=== PATIENT | female | born 1975 | race Caucasian/White ===

== ENCOUNTER 2021-01-26 01:27 | Inpatient (IN) ==
[2021-01-26] MEDS ORDERED: ONDANSETRON INJ 2 MG/ML 2 ML VIAL IV PRN (06:59)
[2021-01-26 07:28] LABS: Basophils # (auto) 0.05 K/uL (0-0.2); Basophils % (auto) 0.4 %; Eosinophils # (auto) 0.08 K/uL (0-0.5); Eosinophils % (auto) 0.6 %; Hematocrit (blood only) 26.3 % (37-47); Hemoglobin 8.8 g/dL (12.0-16.0); Immature Granulocytes # (auto) 0.04 K/uL (0.00-0.02); Immature Granulocytes % (auto) 0.3 %; Lymphocytes # (auto) 2.27 K/uL (1.2-3.4); Lymphocytes % (auto) 16.4 %; Mean Corpuscular Hemoglobin 33.3 pg (25-34); Mean Corpuscular Hgb Conc 33.5 g/dL (32-36); Mean Corpuscular Volume 99.6 fL (80-100); Mean Platelet Volume 9.6 fL (7.4-10.4); Monocytes # (auto) 1.42 K/uL (0.11-0.59); Monocytes % (auto) 10.3 %; Neutrophils # (auto) 9.96 K/uL (1.4-6.5); Platelet Count 151 K/uL (130-400); RDW Coefficient of Variation 19.6 % (11.5-14.5); RDW Standard Deviation 71.1 fL (36.4-46.3); Red Blood Count 2.64 M/uL (4.2-5.4); White Blood Count 13.82 K/uL (4.8-10.8)
[2021-01-26 07:30] LABS: Base Excess VBG 3.6 mEq/L; Oxygen Saturation VBG 83.3 %; pH VBG 7.45 (7.36-7.41)
[2021-01-26] MEDS ORDERED: PATIENT'S ALLERGY INFO NEEDS ENTERED SCH (07:30)
[2021-01-26 07:46] LABS: Albumin Level 2.5 gm/dl (3.4-5.0); BUN Creatinine Ratio 29.1 (10-20); Creatinine Clr Calc Pharmacy 162.4 ml/min; Est GFR (African American) 132.6 ml/min; Est GFR (Non-African American) 114.5 ml/min; Potassium 3.7 mmol/L (3.5-5.1)
[2021-01-26 07:50] LABS: INR 1.7 (0.9-1.1); Partial Thromboplastin Ratio 1.1; Partial Thromboplastin Time 30.2 Seconds (21.0-31.0); Prothrombin Time 16.7 Seconds (9.0-12.0)
[2021-01-26 07:55] LABS: Albumin Globulin Ratio 0.6 (0.9-2); Bilirubin,Total 10.1 mg/dl (0.2-1); Total Protein 6.5 gm/dl (6.4-8.2)
[2021-01-26] MEDS ORDERED: rOPINIRole HCL 0.25 MG TABLET PO PRN (08:07)
[2021-01-26] MEDS ORDERED: HYDROmorphone INJ 0.5 MG/0.5 ML SYR IV STA (08:38)
[2021-01-26] MEDS ORDERED: LIDOCAINE 2% LOCAL 50 ML VIAL ONE (08:42)
[2021-01-26] MEDS ORDERED: LIDOCAINE 1% LOCAL 20 ML VIAL ONE (08:43)
[2021-01-26] MEDS ORDERED: HYDROmorphone INJ 0.5 MG/0.5 ML SYR ONE (08:44)
[2021-01-26] MEDS ORDERED: LIDOCAINE/EPINEPHRINE 1% 20 ML VIAL INFIL ONE (08:47)
[2021-01-26] MEDS: LACTULOSE SYRUP 30 GM/45 ML UDP PO SCH ×4 (10:04→20:26)
[2021-01-26] MEDS: SPIRONOLACTONE 25 MG TAB PO SCH ×2 (10:04→17:13)
[2021-01-26] MEDS: THIAMINE HCL 100 MG TAB PO SCH (10:04)
[2021-01-26] MEDS: NICOTINE 14 MG/24 HR PATCH TD SCH (10:05)
[2021-01-26] MEDS: PANTOprazole 40 MG TAB PO SCH (10:05)
[2021-01-26] MEDS: PREGABALIN 100 MG CAP PO SCH ×2 (10:09→20:22)
--- NOTE | 2021-01-26 10:40 | Gastrointestinal Consultation ---
Date of Consultation January 26, 2021 Assessment & Plan (1) Alcoholic hepatitis: (2) Alcoholic cirrhosis: cirrhosis with what appears to be alcoholic hepatitis vs. encephalopathy from SBP, her DF is 38.6. paracentesis was done, fluid studies are pending. US pending. Recs: --await results of paracentesis, if no SBP then would recommend starting steroids IV methylprenisolone 32 mg daily, calculate Lille score on day 7 of steroids to see if effective --continue PPI daily, trend H/H --will need EGD for variceal screening, likely as an outpatient, sooner if bleeds or rapid drop in H/H during hospitalization --supportive care --start lactulose 30 mL BID, titrate to 3-4 soft/loose bms daily --start rifaximin 550 mg BID --start zinc sulfate daily Thank you for allowing me to participate in the care of this patient History of Present Illness Attending Physician: Ian Garcia MD 46 yo female with hx alcoholic cirrhosis who presented with confusion after drinking alcohol. She notes she drank vodka and has been feeling confused. Was told she was supposed to quit drinking when she was diagnosed with cirrhosis about a year ago but has been drinking still but less, roughly once a week she says, mostly vodka. She also notes swelling in her abdomen with fluid, denies any blood per rectum or hematemesis. She does not know the name of her GI that she sees as an outpatient. labs reviewed, hgb 8.8 is noted with normal BUN. VSS. Allergies Allergy/AdvReac Type Severity Reaction Status Date / Time No Known Allergies Allergy Verified 01/26/21 07:46 Home Medications Medication Instructions Recorded Confirmed Type cholecalciferol (vitamin D3) 2,000 mcg PO DAILY 01/26/21 01/26/21 History [Vitamin D3] cyanocobalamin (vitamin B-12) 1,000 mcg PO DAILY 01/26/21 01/26/21 History lactulose PO 01/26/21 History magnesium oxide 400 mg PO BID 01/26/21 01/26/21 History omeprazole 20 mg PO DAILY 01/26/21 01/26/21 History pantoprazole 40 mg PO DAILYBB 01/26/21 01/26/21 History pregabalin 100 mg PO BID 01/26/21 01/26/21 History ropinirole [Requip] 0.75 mg PO HS PRN 01/26/21 01/26/21 History spironolactone [Aldactone] 50 mg PO BID 01/26/21 01/26/21 History thiamine HCl (vitamin B1) 100 mg PO DAILY 01/26/21 01/26/21 History zolpidem [Ambien] 10 mg PO HS PRN 01/26/21 01/26/21 History Patient History Social History Smoking Status: Current every day smoker Cigarettes Per Day: 1 PPD; Second Hand Exposure: Yes; Do You Dip or Chew Tobacco: No; Tobacco Cessation Education Requested by Patient: No Hx Alcohol Use: Yes Alcohol type: hard liquor Hx Substance Use: Yes Last Used Substance: Unknown Preferred Language: Croatian Communication Ability: Effective Beliefs That Will Affect Care: None Current Living Situation: Alone Other Information That Helps Us Care for You: No Feels Safe at Home: Yes Safety Concerns: Feels Safe At This Time Assistive Devices: Walker Review of Systems Constitutional: no fever, no chills and no weight loss Eyes: as per Subjective / HPI Ear, Nose, Mouth, Throat: as per Subjective / HPI Respiratory: no dyspnea and no dyspnea on exertion Cardiovascular: no chest pain and no palpitations Gastrointestinal: as per Subjective / HPI Musculoskeletal: no joint pain and no swelling Integumentary: no rash and no lesions Neurologic: no numbness and no paresthesia Psychiatric: no depression and no anxiety Endocrine: no fatigue Hematologic / Lymphatic: no easy bleeding and no easy bruising Physical Exam Constitutional: WD/WN, vitals as above Eyes: EOM intact bilaterally Neck: normal visual inspection Respiratory: normal respiratory effort, lungs clear to auscultation Cardiovascular: RRR, no murmur, no edema Gastrointestinal (Abdomen): Inspection/Auscultation: + abdomen distended and normal bowel sounds Percussion/Palpation: + abdomen tender (diffuse mild); + abdomen not soft and no hepatosplenomegaly no asterixis Musculoskeletal: Extremities: no cyanosis Gait: normal gait Skin: no rashes, warm and dry Neurologic: moves all extremities Psychiatric: Orientation: alert, oriented to person, oriented to place and cooperative; + not oriented to time Affect: euthymic affect Results & Data ([facility]) Vital Signs (Past 12 Hours) Vital Signs Temp Pulse Resp BP Pulse Ox 01/26/21 06:05 36.4 C L 88 22 128/48 L 96 PG Care Time/CCT Total # of Minutes Spent Total Time Spent with Patient: Total time spent is greater than 50% in coordination of care (as documented) at patient's floor/unit and/or counseling patient: Coding Level of Care Code 93972 Inpt Consult Level 4 Diagnoses Alcoholic hepatitis K70.10 Alcoholic cirrhosis K70.30
[2021-01-26 10:43] LABS: Appearance Peritoneal Fluid CLEAR; Basophils, Fluid 0 %; Color Peritoneal Fluid YELLOW; Eosinophils, Fluid 0 %; Lymphocytes, Fluid 66 %; Mono,Macrophage,Mesothelial 27 %; Neutrophils, Fluid 7 %; RBC Peritoneal Fluid (A) < 3000 /uL; WBC Peritoneal Fluid (A) 200 /ul (0-300)
[2021-01-26 10:50] LABS: Albumin Peritoneal Fluid 0.6 g/dl; LDH Peritoneal Fluid 52 U/L
[2021-01-26] MEDS: traMADol HCL 50 MG TABLET PO PRN ×2 (13:26→21:49)
[2021-01-26] MEDS: LIDOCAINE 5% 1 PATCH TD SCH (13:27)
[2021-01-26] MEDS: methylPREDNISolone 40 MG in SYRINGE 0 ML IV SCH (13:27)
--- NOTE | 2021-01-26 14:44 | Psychiatric Consultation ---
Date of Consultation January 26, 2021 Impression / Recommendations Impression 46-year-old female presenting as a interhospital transfer secondary to AMS. Patient found to be cirrhotic upon diagnostic evaluation. Patient was reported to have made a suicidal statement while in the midst of her delirium and was on suicide precautions. Patient now denying any suicidal ideation or need for acute psychiatric care. Recommendations: Patient is not suicidal discontinue one-to-one sitter Psychiatric liaison to follow and offer outpatient resources Inventory Assets Strengths: Insight Needs: Sobriety Risk Factors Assessment Male: No : Yes Hopelessness: No Psych History Chief Complaint "I am still nauseous, maybe more so than this morning" History of Present Illness Patient is a 46-year-old female who was transferred from outside hospital due to altered mental status. According to records from outside hospital patient did make a suicidal statement while under the care and was placed on suicide precautions. Upon evaluation today, patient is laying calm and cooperative in bed. She reports her sensorium is somewhat cloudy but is able to make conversation in a logical fashion. She does not recall making suicidal statements and denies any suicidal ideation at this time. Patient does have a mental health history of depression anxiety for which she is not currently in treatment for. Patient denies the need for any acute treatment at this time, but is agreeable and accepting of outpatient psychiatric resources. Patient denying any manic or psychotic symptoms in the past or presently. Allergies Allergy/AdvReac Type Severity Reaction Status Date / Time No Known Allergies Allergy Verified 01/26/21 07:46 Home Medications Medication Instructions Recorded Confirmed Type cholecalciferol (vitamin D3) 2,000 mcg PO DAILY 01/26/21 01/26/21 History [Vitamin D3] cyanocobalamin (vitamin B-12) 1,000 mcg PO DAILY 01/26/21 01/26/21 History lactulose PO 01/26/21 History magnesium oxide 400 mg PO BID 01/26/21 01/26/21 History omeprazole 20 mg PO DAILY 01/26/21 01/26/21 History pantoprazole 40 mg PO DAILYBB 01/26/21 01/26/21 History pregabalin 100 mg PO BID 01/26/21 01/26/21 History ropinirole [Requip] 0.75 mg PO HS PRN 01/26/21 01/26/21 History spironolactone [Aldactone] 50 mg PO BID 01/26/21 01/26/21 History thiamine HCl (vitamin B1) 100 mg PO DAILY 01/26/21 01/26/21 History zolpidem [Ambien] 10 mg PO HS PRN 01/26/21 01/26/21 History Personal History Beliefs That Will Affect Care: None Patient History Social History Smoking Status: Current every day smoker Cigarettes Per Day: 1 PPD; Second Hand Exposure: Yes; Do You Dip or Chew Tobacco: No; Tobacco Cessation Education Requested by Patient: No Hx Alcohol Use: Yes Alcohol type: hard liquor Hx Substance Use: Yes Last Used Substance: Unknown Preferred Language: Mohawk Communication Ability: Effective Beliefs That Will Affect Care: None Current Living Situation: Alone Other Information That Helps Us Care for You: No Feels Safe at Home: Yes Safety Concerns: Feels Safe At This Time Assistive Devices: Walker Physical Exam Psychiatric: Orientation: alert Apperance: appropriately groomed Eye Contact: + fair eye contact Motor Behavior: no abnormal motor movements S peech: normal rate/rhythm/volume of speech Affect: + flat affect Mood: no depressed mood and no anxious mood Thought Process: goal directed thought process Thought Content: reality based without delusions Suicidal Thoughts: denies suicidal thoughts Homicidal Thoughts: denies homicidal thoughts Hallucinations: no auditory hallucinations and no gustatory hallucinations Cognition: recent memory grossly intact Estimated Intelligence: average estimated intelligence Insight: + fair insight Judgement: + fair judgement Vital Signs (Past 24 Hours): Last Vital Signs Temp 37.0 C 01/26/21 11:58 Pulse 93 H 01/26/21 11:58 Resp 18 01/26/21 11:58 BP 118/63 01/26/21 11:58 Pulse Ox 91 01/26/21 11:58 Review of Systems All systems reviewed & are unremarkable except as noted in HPI & below Results & Data ([facility]) Medications Administered Methylprednisolone 40 mg/ (Syringe) 0.64 mls @ 1.5 mls/min IV DAILY KORY Stop: 02/25/21 12:29 Last Admin: 01/26/21 13:27 Dose: 1.5 mls/min Documented by: [id number] Lactulose (Lactulose Syrup 30 Gm/45 Ml Udp) 30 gm PO TID KORY Stop: 02/25/21 08:59 Last Admin: 01/26/21 13:27 Dose: 30 gm Documented by: [id number] Admin: 01/26/21 10:04 Dose: 30 gm Documented by: [id number] Lidocaine (Lidocaine 5% 1 Patch) 1 [facility] [place]: 02/25/21 12:29 Last Admin: 01/26/21 13:27 Dose: 1 patch Documented by: [id number] Nicotine (Nicotine 14 Mg/24 Hr Patch) 14 mg TD QAM [facility] Stop: 02/25/21 08:59 Last Admin: 01/26/21 10:05 Dose: 14 mg Documented by: [id number] Pantoprazole Sodium (Pantoprazole 40 Mg Tab) 40 mg PO DAILYBB [facility] Stop: 02/26/21 06:29 Last Admin: 01/26/21 10:05 Dose: 40 mg Documented by: [id number] Pregabalin (Pregabalin 100 Mg Cap) 100 mg PO BID [facility] Stop: 02/25/21 08:59 Last Admin: 01/26/21 10:09 Dose: 100 mg Documented by: [id number] Spironolactone (Spironolactone 25 Mg Tab) 50 mg PO BID17 [facility] Stop: 02/25/21 08:59 Last Admin: 01/26/21 10:04 Dose: 50 mg Documented by: [id number] Thiamine HCl (Thiamine Hcl 100 Mg Tab) 100 mg PO DAILY [facility] Stop: 02/25/21 08:59 Last Admin: 01/26/21 10:04 Dose: 100 mg Documented by: [id number] Tramadol HCl (Tramadol Hcl 50 Mg Tablet) 50 mg PO TID PRN PRN Reason: Severe Pain Stop: 02/25/21 13:59 Last Admin: 01/26/21 13:26 Dose: 50 mg Documented by: [id number] Coding Level of Care Code 79013 U Intl Hosp Care Lvl 2
--- NOTE | 2021-01-26 15:16 | History & Physical Report ---
Date of Service January 26, 2021 Assessment & Plan (1) Alcoholic hepatitis: Janette DF is 38 on admission. - SBP ruled out with clean paracentesis; started methylprednisolone 40 mg IV daily per GI - RUQ u/s pending - HCV testing ordered for AM - Monitor for withdrawal -> None on exam today. - Follow liver labs - GI consulted (2) Alcoholic cirrhosis: Evidence of cirrhosis on imaging and exam. MELD score gives 19.6% chance of mortality in 3 months. - RUQ u/s as above - Continue home lactulose -> NH3 of 42 on outside labs - Continue spironolactone - Continue PPI PO daily - Monitor for bleeding -> Hgb was 8.8 on admission which was similar to her hgb at [facility] yesterday. Presently no indication of acute GI bleed. (3) Depression: Expressed SI to the [facility] ED attending and to admitting provider at [facility], but denied it to psychciatry. - Cleared from suicide precautions. - Will get outpatient resources from psychiatric nurse liaison (4) Alcohol abuse: Has drank up to 1 bottle of vodka daily, though she endorses cutting back in the last weeks/months. - Monitor for withdrawal (5) Chronic back pain: Chronic back pain. - Tylenol PRN (<2g/day) - Lidocaine patches - Tramadol (hepatically-adjusted) (6) Tobacco abuse: Smokes 1/2 ppd. - Nicotine patch ordered (7) DVT prophylaxis: SCDs - No heparin until hgb stable. Admission and Anticipated Discharge Date Admission Date: January 26, 2021 History of Present Illness Primary Care Provider: Emeterio Herndon 46yo F w/ hx of alcoholic cirrhosis. She usually follows with [facility], but cannot tell me any specifics of her recent liver care. She tells me she went to [facility] ED for back and abdominal pain as well as suicidal feelings. She denies she had a plan, but says that if God intends for her to be in such pain, she needs a "back-up plan." She notes that she has chronic nausea and sporadic emesis. She reports her last emesis to be on . She reports the emesis as her prior ingested food and sometimes some bilious vomit, but denies coffee ground emesis or any hematemes is. She note some mild bright red blood on her stool, but mostly it is on the toilet paper when she wipes. She notes that when she drank more heavily, she would drink an entire bottle of vodka per day or "until [she] passed out." Presently, she reports her last drink as on and that it was only 1 1/2 shots of vodka. She endorses significant back and abdominal pain, but otherwise none. She denies any chest pain, shortness of breath, present nausea or vomiting, denies fevers/chills. She is somewhat confused and keeps thinking she is at [facility] where she is usually sent for hospitalization. Allergies Allergy/AdvReac Type Severity Reaction Status Date / Time No Known Allergies Allergy Verified 01/26/21 07:46 Home Medications Medication Instructions Recorded Confirmed Type cholecalciferol (vitamin D3) 2,000 mcg PO DAILY 01/26/21 01/26/21 History [Vitamin D3] cyanocobalamin (vitamin B-12) 1,000 mcg PO DAILY 01/26/21 01/26/21 History lactulose PO 01/26/21 History magnesium oxide 400 mg PO BID 01/26/21 01/26/21 History omeprazole 20 mg PO DAILY 01/26/21 01/26/21 History pantoprazole 40 mg PO DAILYBB 01/26/21 01/26/21 History pregabalin 100 mg PO BID 01/26/21 01/26/21 History ropinirole [Requip] 0.75 mg PO HS PRN 01/26/21 01/26/21 History spironolactone [Aldactone] 50 mg PO BID 01/26/21 01/26/21 History thiamine HCl (vitamin B1) 100 mg PO DAILY 01/26/21 01/26/21 History zolpidem [Ambien] 10 mg PO HS PRN 01/26/21 01/26/21 History Past Med/Surg History Medical History Alcoholic cirrhosis Depression Surgical History No significant past surgical history Family History Other No significant family history Social History Smoking Status: Current every day smoker Cigarettes Per Day: 1 PPD; Second Hand Exposure: Yes; Do You Dip or Chew Tobacco: No; Tobacco Cessation Education Requested by Patient: No Hx Alcohol Use: Yes Alcohol type: hard liquor Hx Substance Use: Yes Last Used Substance: Unknown Preferred Language: Jamaican Communication Ability: Effective Beliefs That Will Affect Care: None Current Living Situation: Alone Other Information That Helps Us Care for You: No Feels Safe at Home: Yes Safety Concerns: Feels Safe At This Time Assistive Devices: Walker Review of Systems Review of Systems: All systems reviewed & are unremarkable except as noted in HPI & below Physical Exam Constitutional: WD/WN, vitals as above + acute distress Eyes: EOM intact bilaterally; no conjunctival abnormality and sclerae not anicteric ENMT: external ear and nose normal, oropharynx normal Neck: trachea midline, no thyromegaly normal visual inspection Respiratory: normal respiratory effort, lungs clear to auscultation no respiratory distress Cardiovascular: RRR, no murmur, no edema Gastrointestinal (Abdomen): Inspection/Auscultation: + abdomen distended; + abdomen abnormal to inspection (Spider veins) Percussion/Palpation: abdomen soft and + ascites; abdomen nontender, no guarding and abdomen not rigid Musculoskeletal: no cyanosis or clubbing, extremities motor strength 5/5 Skin: no rashes, warm and dry + jaundice Neurologic: moves all extremities and awake Motor/Sensory: no tremor, no fasciculations (No tongue fasiculations) and no asterixis Psychiatric: Orientation: alert, oriented to person and cooperative Results & Data Results & Data ([facility]) Vital Signs (Past 12 Hours) Vital Signs Temp Pulse Resp BP Pulse Ox 01/26/21 11:58 37.0 C 93 H 18 118/63 91 01/26/21 06:05 36.4 C L 88 22 128/48 L 96 Code Status & VTE Plan VTE Prophylaxis Plan VTE Prophylaxis will be ordered: Yes PG Care Time/CCT Total # of Minutes Spent Total Time Spent with Patient: Total time spent is greater than 50% in co ordination of care (as documented) at patient's floor/unit and/or counseling patient: Coding Level of Care Code 32597 Initial Inpt Care Lvl 3 Diagnoses Alcoholic hepatitis K70.10 Alcoholic cirrhosis K70.30 Depression F32.9 Alcohol abuse F10.10 Chronic back pain M54.9; G89.29 Tobacco abuse Z72.0 DVT prophylaxis Z29.9
--- NOTE | 2021-01-26 17:10 | Ultrasound Report ---
ABDOMINAL ULTRASOUND, RIGHT UPPER QUADRANT HISTORY: Liver, ascites. COMPARISON: None. FINDINGS: Pancreas: Is not well seen due to overlying bowel gas. Liver: Is enlarged measuring 22.4 cm in length. Prominent lobulated contour of the liver is seen and associated with ascites representing liver cirrhosis. No definite focal liver lesions or intrahepatic biliary dilatation is visualized however there is heterogeneous echogenicity and coarse echotexture of liver parenchyma. No evidence of flow within portal vein is seen. Recanalized umbilical vein is patent. Gallbladder: Surgically absent. CBD: 0.3 cm. Right kidney: Is measuring 11 cm in length and shows no evidence of hydronephrosis. Free fluid collection is seen within all 4 quadrants. IMPRESSION: Liver cirrhosis, hepatomegaly. Ascites. No flow within portal vein is seen. Patent umbilical vein. ACT 112: Negative or not required by law. The above report was generated using voice recognition software. It may contain grammatical, syntax o r spelling errors. Electronically signed by: Lucero Currie DO 01/26/2021 5:09 PM
[2021-01-26] MEDS: ACETAMINOPHEN 500 MG TAB PO PRN (17:13)
[2021-01-26] MEDS: rifAXIMin 550 MG TABLET PO SCH (20:19)
[2021-01-27] MEDS: ACETAMINOPHEN 500 MG TAB PO PRN (01:27)
[2021-01-27] MEDS: PANTOprazole 40 MG TAB PO SCH (06:06)
[2021-01-27] MEDS: traMADol HCL 50 MG TABLET PO PRN ×2 (06:07→17:55)
[2021-01-27 06:55] LABS: Hematocrit (blood only) 24.6 % (37-47); Hemoglobin 8.1 g/dL (12.0-16.0); Mean Corpuscular Hemoglobin 33.6 pg (25-34); Mean Corpuscular Hgb Conc 32.9 g/dL (32-36); Mean Corpuscular Volume 102.1 fL (80-100); Mean Platelet Volume 9.3 fL (7.4-10.4); Platelet Count 167 K/uL (130-400); RDW Coefficient of Variation 19.4 % (11.5-14.5); Red Blood Count 2.41 M/uL (4.2-5.4); White Blood Count 12.35 K/uL (4.8-10.8)
--- NOTE | 2021-01-27 07:14 | Procedure Note ---
Procedure Note Date of Service January 26, 2021 Supervising Physician Co-Signing Physician Notes I personally performed this paracentesis with the assistance of Silas Genao DO. The patient was consented with Dr. Genao and informed consent was put in the chart. A time-out was performed prior to the procedure with the patient identifying her name and birthdate. The site was confirmed with ultrasound. The site was marked and prepped with chlorhexidine and allowed to dry. Sterile gloves were donned and the area was draped with a sterile drape. 1 mL lidocaine with epi was injected under the skin and allowed to take effect. The site was numbed with the remaining 2 mL of lidocaine. A 20g needle was advanced and entered the peritoneal space. Return of yellow ascites fluid was seen. 20 mL of ascites fluid was sampled and the needle was pulled from the peritoneal cavity and examined and found to be intact. The site was cleaned and no bleeding was observed. There were no procedural complications. The patient tolerated the procedure well and was in no pain at the end of the procedure. A bandage was placed over the site, and the procedure was concluded. Coding CPT Codes Abdomen - Abdominal: 29300 Abdominal Paracentesis (diagnostic or therapeutic); W/O imaging ([id number]) [facility] Procedure Codes (Charges) Abdomen Abdominal: 22799 Abdominal Paracentesis (diagnostic or therapeutic); W/O imaging
[2021-01-27 07:17] LABS: Albumin Globulin Ratio 0.6 (0.9-2); Albumin Level 2.4 gm/dl (3.4-5.0); BUN Creatinine Ratio 43.9 (10-20); Calcium 8.3 mg/dl (8.5-10.1); Creatinine Clr Calc Pharmacy 180.4 ml/min; Est GFR (African American) 137.3 ml/min; Est GFR (Non-African American) 118.5 ml/min; Globulin 4.1 gm/dl (2.5-4.0); INR 1.8 (0.9-1.1); Magnesium 1.8 mg/dl (1.8-2.4); Partial Thromboplastin Ratio 1.1; Partial Thromboplastin Time 29.6 Seconds (21.0-31.0); Potassium 3.8 mmol/L (3.5-5.1); Prothrombin Time 17.1 Seconds (9.0-12.0); Total Protein 6.5 gm/dl (6.4-8.2)
[2021-01-27] MEDS: PREGABALIN 100 MG CAP PO SCH ×2 (09:23→20:38)
[2021-01-27] MEDS: LACTULOSE SYRUP 30 GM/45 ML UDP PO SCH ×3 (09:23→20:35)
[2021-01-27] MEDS: THIAMINE HCL 100 MG TAB PO SCH (09:24)
[2021-01-27] MEDS: ZINC SULFATE 220 MG CAPSULE PO SCH (09:24)
[2021-01-27] MEDS: rifAXIMin 550 MG TABLET PO SCH ×2 (09:26→20:35)
[2021-01-27] MEDS: methylPREDNISolone 40 MG in SYRINGE 0 ML IV SCH (09:26)
[2021-01-27] MEDS: SPIRONOLACTONE 25 MG TAB PO SCH ×2 (09:26→17:56)
[2021-01-27] MEDS: LIDOCAINE 5% 1 PATCH TD SCH (09:26)
[2021-01-27] MEDS: NICOTINE 14 MG/24 HR PATCH TD SCH (09:27)
[2021-01-27] MEDS: VENLAFAXINE HCL XR 37.5 MG CAPXR PO SCH ×2 (11:32→12:17)
--- NOTE | 2021-01-27 12:15 | Hospitalist Progress Note ---
Date of Service January 27, 2021 Assessment & Plan (1) Alcoholic hepatitis: Janette DF was 38 on admission. - SBP ruled out with clean paracentesis; started methylprednisolone 40 mg IV daily per GI. (Only did diagnostic paracentesis as patient was not willing to do therapeutic.) - HCV testing ordered for AM - pending - Monitor for withdrawal -> None on exam today. - Follow liver labs -> Improving - GI consulted - Appreciate recs (2) Alcoholic cirrhosis: Evidence of cirrhosis on imaging and exam. MELD score gives 19.6% chance of mortality in 3 months. RUQ u/s on 01/26 showed evidence of cirrhosis, possible portal vein thrombosis, and ascites. - Continue home lactulose -> NH3 of 42 on outside labs. Mental status improved today. - Continue spironolactone - Continue PPI PO daily - Monitor for bleeding -> Hgb was 8.8 on admission which was similar to her hgb at [facility] on 01/25. Unclear baseline. - Hgb down to 8.1 today. Presently no indication of acute GI bleed. If continues to drop, will likely need GI intervention. - Will get portal vein Doppler to confirm PVT. Given concern for bleeding, anticoagulation is contraindicated at present time. Also, presently not sure of chronicity in any event. (3) Depression: Expressed SI to the [facility] ED attending and to admitting provider at [facility], but denied it to psychiatry. - Cleared from suicide precautions. - Will get outpatient resources from psychiatric nurse liaison - Started venlafaxine ER 37.5 mg daily and Vistaril on 01/27. She reported success with duloxetine in the past, but stopped it when she relapsed with alcohol. Duloxetine is contraindicated in cirrhosis, but venlafaxine is ok at 1/2 usual dosing. Vistaril may help with anxiety as well. Also ordered with hepatic dosing. (4) Alcohol abuse: Has drank up to 1 bottle of vodka daily, though she endorses cutting back in the last weeks/months. - Monitor for withdrawal -> None noted so far. (5) Chronic back pain: Chronic back pain. - Tylenol PRN (<2g/day) - Lidocaine patches - Tramadol PRN (hepatically-adjusted) (6) Tobacco abuse: Smokes 1/2 ppd. - Nicotine patch ordered (7) DVT prophylaxis: SCDs - No heparin until hgb stable. Admission and Anticipated Discharge Date Admission Date: January 26, 2021 Subjective Feeling more anxious today. Still reports abdominal pain and back pain which are both chronic for her. Reports no fevers/chills, chest pain, shortness of breath, nausea, or vomiting. Physical Exam 2 Constitutional: WD/WN, vitals as above Eyes: EOM intact bilaterally; no conjunctival abnormality and sclerae not anicteric ENMT: external ear and nose normal, oropharynx normal Neck: trachea midline, no thyromegaly normal visual inspection Respiratory: normal respiratory effort, lungs clear to auscultation no respiratory distress Cardiovascular: RRR, no murmur, no edema Gastrointestinal (Abdomen): Inspection/Auscultation: + abdomen distended; + abdomen abnormal to inspection (Spider veins) Percussion/Palpation: abdomen soft and + ascites; abdomen nontender, no guarding and abdomen not rigid Musculoskeletal: no cyanosis or clubbing, extremities motor strength 5/5 Skin: no rashes, warm and dry + jaundice Neurologic: moves all extremities and awake Motor/Sensory: no tremor, no fasciculations (No tongue fasiculations) and no asterixis Psychiatric: Orientation: alert, oriented to person and cooperative Results & Data Results & Data ([facility]) Vital Signs (Past 12 Hours) Vital Signs Temp Pulse Resp BP Pulse Ox 01/27/21 08:04 36.7 C 82 17 109/68 93 PG Care Time/CCT Total # of Minutes Spent Total Time Spent with Patient: Total time spent is greater than 50% in coordination of care (as documented) at patient's floor/unit and/or counseling patient: Coding Level of Care Code 18861 Subseq Hosp Care Lvl 3 Diagnoses Alcoholic hepatitis K70.10 Alcoholic cirrhosis K70.30 Depression F32.9 Alcohol abuse F10.10 Chronic back pain M54.9; G89.29 Tobacco abuse Z72.0 DVT prophylaxis Z29.9
--- NOTE | 2021-01-27 16:09 | Ultrasound Report ---
US duplex portal hepatic veins HISTORY: 46 years-old Female Possible portal vein thrombosis follow-up study in a patient with ascit es and cirrhosis COMPARISON: Pelvic ultrasound 01/26/2021 TECHNIQUE: Multiple real-time sonographic images of the hepatic vasculature was obtained assessing gr ayscale appearance, color and spectral flow FINDINGS: Cirrhotic morphology of the liver. No hepatic mass identified. Low resistance waveforms noted within the patent hepatic artery. There is a least partial occlusion of the main portal vein. The hepatic ve ins and splenic vein appear patent. Recanalization of the umbilical vein. Small volume right upper qu adrant abdominal ascites. IMPRESSION: 1. At least partially occlusive portal vein thrombus of unknown chronicity. 2. Cirrhotic liver disease with small volume of abdominal ascites. ACT 112: Negative or not required by law. The above report was generated using voice recognition software. It may contain grammatical, syntax o r spelling errors. Electronically signed by: Santy Castellano M.D. 01/27/2021 4:07 PM
[2021-01-27] MEDS ORDERED: Heparin IV Adult Wt-Based Low-Dose *NO* Bolus Protocol IV SCH (17:00)
[2021-01-27 18:05] LABS: Basophils # (auto) 0.01 K/uL (0-0.2); Basophils % (auto) 0.1 %; Hematocrit (blood only) 27.2 % (37-47); Hemoglobin 8.9 g/dL (12.0-16.0); Immature Granulocytes # (auto) 0.06 K/uL (0.00-0.02); Immature Granulocytes % (auto) 0.4 %; Lymphocytes # (auto) 1.14 K/uL (1.2-3.4); Lymphocytes % (auto) 6.7 %; Mean Corpuscular Hemoglobin 33.6 pg (25-34); Mean Corpuscular Volume 102.6 fL (80-100); Mean Platelet Volume 9.3 fL (7.4-10.4); Monocytes # (auto) 0.77 K/uL (0.11-0.59); Monocytes % (auto) 4.5 %; Neutrophils % (auto) 88.3 %; Platelet Count 186 K/uL (130-400); RDW Coefficient of Variation 19.5 % (11.5-14.5); RDW Standard Deviation 74.5 fL (36.4-46.3); Red Blood Count 2.65 M/uL (4.2-5.4); White Blood Count 17.08 K/uL (4.8-10.8)
[2021-01-27 18:08] LABS: Mean Corpuscular Hgb Conc 32.7 g/dL (32-36)
[2021-01-27 18:11] LABS: INR 1.7 (0.9-1.1); Prothrombin Time 16.3 Seconds (9.0-12.0)
[2021-01-27] MEDS: HEPARIN SODIUM/DEXTROSE 25,000 UNITS/500 ML BAG IV SCH (18:28)
[2021-01-28 00:25] LABS: Hematocrit (blood only) 24.8 % (37-47); Hemoglobin 8.2 g/dL (12.0-16.0)
[2021-01-28 00:36] LABS: Partial Thromboplastin Ratio 1.4
[2021-01-28] MEDS ORDERED: HEPARIN IV BOLUS 3,000 UNITS in SYRINGE 0 ML IV ONE (01:00)
[2021-01-28] MEDS: traMADol HCL 50 MG TABLET PO PRN ×2 (01:53→12:44)
[2021-01-28] MEDS: PANTOprazole 40 MG TAB PO SCH (06:10)
[2021-01-28 07:50] LABS: Hematocrit (blood only) 25.1 % (37-47); Hemoglobin 8.2 g/dL (12.0-16.0); Mean Corpuscular Hemoglobin 33.7 pg (25-34); Mean Corpuscular Hgb Conc 32.7 g/dL (32-36); Mean Corpuscular Volume 103.3 fL (80-100); Mean Platelet Volume 9.5 fL (7.4-10.4); Platelet Count 191 K/uL (130-400); RDW Coefficient of Variation 19.7 % (11.5-14.5); RDW Standard Deviation 74.2 fL (36.4-46.3); Red Blood Count 2.43 M/uL (4.2-5.4); White Blood Count 16.85 K/uL (4.8-10.8)
[2021-01-28 08:16] LABS: INR 1.8 (0.9-1.1); Partial Thromboplastin Ratio 1.8; Prothrombin Time 17.5 Seconds (9.0-12.0)
[2021-01-28 08:26] LABS: Partial Thromboplastin Time 47.3 Seconds (21.0-31.0)
[2021-01-28 08:33] LABS: Albumin Globulin Ratio 0.6 (0.9-2); Albumin Level 2.5 gm/dl (3.4-5.0); BUN Creatinine Ratio 40.9 (10-20); Calcium 8.5 mg/dl (8.5-10.1); Creatinine Clr Calc Pharmacy 148.8 ml/min; Est GFR (African American) 129.3 ml/min; Est GFR (Non-African American) 111.6 ml/min; Globulin 3.9 gm/dl (2.5-4.0); Magnesium 1.9 mg/dl (1.8-2.4); Potassium 3.6 mmol/L (3.5-5.1); Total Protein 6.4 gm/dl (6.4-8.2)
--- NOTE | 2021-01-28 08:33 | Hospitalist Progress Note ---
Date of Service January 28, 2021 Assessment & Plan (1) Alcoholic hepatitis: Janette DF was 38 on admission. - SBP ruled out with paracentesis; started methylprednisolone 40 mg IV daily per GI. (Only did diagnostic paracentesis as patient was not willing to do therapeutic.) - HCV testing - pending - Monitor for withdrawal - Follow liver labs -> Improving - GI consulted - Appreciate recs, continued steroids no comment on continued anticoagulation at discharge may change idea about outpt vs inpt egd, if we need to make a decision about doac abdomen is larger and more tender according to pt, will now permit large volume paracentesis but will need to be off heparin for 6 hours will do tomorrow (2) Portal vein thrombosis: u/s 01/26 IMPRESSION: 1. At least partially occlusive portal vein thrombus of unknown chronicity. 2. Cirrhotic liver disease with small volume of abdominal ascites. pt started on IV heparin after previous attending discussed with GI instructional systems design consultant. may need further discussion to determine if bleeding risk from varices and will consider transition to Doac if able (3) Alcoholic cirrhosis: Evidence of cirrhosis on imaging and exam. MELD score gives 19.6% chance of mortality in 3 months. RUQ u/s on 01/26 showed evidence of cirrhosis, possible portal vein thrombosis, and ascites. - Continue home lactulose -> NH3 of 42 on outside labs. Mental status improved today. - Continue spironolactone - Continue PPI PO daily - Monitor for bleeding -> Hgb was 8.8 on admission which was similar to her hgb at [facility] on 01/25. Unclear baseline. - Hgb down to 8.1 today. Presently no indication of acute GI bleed. If continues to drop, will likely need GI intervention. - Will get portal vein Doppler to confirm PVT. Given concern for bleeding, anticoagulation is contraindicated at present time. Also, presently not sure of chronicity in any event. (4) Depression: Expressed SI to the [facility] ED attending and to admitting provider at [facility], but denied it to psychiatry. - Cleared from suicide precautions. - Will get outpatient resources from psychiatric nurse liaison - Started venlafaxine ER 37.5 mg daily and Vistaril on 01/27. She reported success with duloxetine in the past, but stopped it when she relapsed with alcohol. Duloxetine is contraindicated in cirrhosis, but venlafaxine is ok at 1/2 usual dosing. Vistaril may help with anxiety as well. Also ordered with hepatic dosing. (5) Alcohol abuse: Has drank up to 1 bottle of vodka daily, though she endorses cutting back in the last weeks/months. - Monitor for withdrawal -> None noted so far. (6) Chronic back pain: Chronic back pain. - Tylenol PRN (<2g/day) - Lidocaine patches - Tramadol PRN (hepatically-adjusted) (7) Tobacco abuse: Smokes 1/2 ppd. - Nicotine patch ordered (8) DVT prophylaxis: SCDs - no on therapeutic heparin Admission and Anticipated Discharge Date Admission Date: January 26, 2021 Subjective Patient reports continued diarrhea with the lactulose. Also with mild abdominal tenderness ? from site of prior paracentesis. Remains on IV steroids. DF down to 30.3 today. Lower extremity edema resolving. Review of Systems Review of Systems: Mild distress and moderate fatigue no headache, no visual changes no speech or swallowing issues no chest pain, pressure or palpitations no shortness of breath, cough or wheezes Dental pain diffusely more near the site of previous paracentesis diarrhea persist with lactulose therapy no dysuria, hematuria or frequency no focal joint pain continues with distal extremity swelling no back pain, CVA tenderness or radicular pain Some areas of bruising, but no bleeding or rashes no focal signs of weakness or numbness or altered sensation no complaints of anxiety or depression.. Physical Exam Physical Exam: The patient appeared chronically ill with poor skin color Vital signs as documented. Head exam is normocephalic atraumatic Neck is without JVD, thyromegaly, or carotid bruits. Lungs are clear to auscultation, no focal loss of breath sounds Cardiac exam, Rhythm is regular.. No murmurs, rubs or gallops. Abdominal exam reveals significant ascites no caput medusa tenderness to examination no rebound no guarding hepatomegaly Extremities are 1+ edematous and both pedal pulses are present Neurologic exam is alert and oriented, no asterixis, no focal loss of strength or sensation Skin is with minor bruises or rashes Psychologically is without concerns for anxiety or depression Results & Data Results & Data ([facility]) Vital Signs (Past 12 Hours) Vital Signs Temp Pulse Resp BP Pulse Ox 01/28/21 07:59 98.1 F 78 18 106/58 L 93 01/28/21 02:59 98.8 F 79 101/59 L 92 01/27/21 23:02 97.5 F L 82 106/62 93 01/27/21 21:00 98.4 F 80 96/59 L 94 PG Care Time/CCT Total # of Minutes Spent Total Time Spent with Patient: Total time spent is greater than 50% in coordinat ion of care (as documented) at patient's floor/unit and/or counseling patient: Coding Level of Care Code 31404 Subseq Hosp Care Lvl 3 Diagnoses Alcoholic hepatitis K70.10 Portal vein thrombosis I81 Alcoholic cirrhosis K70.30 Depression F32.9 Alcohol abuse F10.10 Chronic back pain M54.9; G89.29 Tobacco abuse Z72.0 DVT prophylaxis Z29.9
[2021-01-28] MEDS: PREGABALIN 100 MG CAP PO SCH ×2 (08:39→20:06)
[2021-01-28] MEDS: SPIRONOLACTONE 25 MG TAB PO SCH ×2 (08:40→18:10)
[2021-01-28] MEDS: rifAXIMin 550 MG TABLET PO SCH ×2 (08:40→20:07)
[2021-01-28] MEDS: ZINC SULFATE 220 MG CAPSULE PO SCH (08:40)
[2021-01-28] MEDS: THIAMINE HCL 100 MG TAB PO SCH (08:41)
[2021-01-28] MEDS: methylPREDNISolone 32 MG in SYRINGE 0 ML IV SCH (08:41)
[2021-01-28] MEDS: NICOTINE 14 MG/24 HR PATCH TD SCH (08:41)
[2021-01-28] MEDS: LACTULOSE SYRUP 30 GM/45 ML UDP PO SCH (08:42)
[2021-01-28] MEDS: VENLAFAXINE HCL XR 37.5 MG CAPXR PO SCH (08:43)
[2021-01-28] MEDS: LIDOCAINE 5% 1 PATCH TD SCH (08:43)
--- NOTE | 2021-01-28 09:48 | Gastroenterology Progress Note ---
Date of Service January 28, 2021 Assessment & Plan (1) Alcoholic hepatitis: (2) Alcoholic cirrhosis: cirrhosis with what appears to be alcoholic hepatitis with hepatic encephalopathy. S/P paracentesis without evidence of SBP. DF down to 30.3 from 38.6 on admission. Recs: --Continue Methylprednisolone 32 mg daily, calculate Lille score on day 7 of steroids to see if effective. --Continue PPI daily, trend H/H. --will need EGD for variceal screening, likely as an outpatient, sooner if bleeds or rapid drop in H/H during hospitalization and routine HCC surveillance. --Reduce Lactulose 15 mL BID due to severe diarrhea. Titrate to 3-4 soft/loose bms daily. --Continue Rifaximin 550 mg BID. --Continue zinc sulfate and thiamine daily. --Rest per primary team. Admission and Anticipated Discharge Date Admission Date: January 26, 2021 Supervising Physician Co-Signing Physician Notes Agree with GERTRUDIS Zarate as above Abd: Soft, Distended, Tender, +BS Continue current management and supportive care Recommend obtaining records from prior GI service Consider Therapeutic paracentesis Patient states she cannot tolerate oral diuretics due to prior ESE when she was on these, therefore consider evaluation for TIPS if she has recurrent ascites. Subjective Patient reports significant diarrhea with the lactulose. Also with mild abdominal tenderness from site of prior paracentesis. H&H is stable. INR 1.8 today. Remains on IV steroids. DF down to 30.3 today. Lower extremity edema resolved. Review of Systems Constitutional: no fever, no chills and no malaise Gastrointestinal: as per Subjective / HPI Musculoskeletal: + back pain Integumentary: + yellowing of the skin Psychiatric: no confusion and no hallucinations Physical Exam Constitutional: WD/WN, vitals as above well developed and well nourished Eyes: + scleral abnormality (bilateral icterus) Respiratory: normal respiratory effort, lungs clear to auscultation Cardiovascular: Rate/Rhythm: regular rate and regular rhythm Gastrointestinal (Abdomen): Inspection/Auscultation: + hyperactive bowel sounds Percussion/Palpation: + abdomen tender, abdomen soft and + ascites Musculoskeletal: Extremities: extremities normal to inspection Skin: + jaundice Psychiatric: A+Ox3, euthymic affect Results & Data Results & Data ([facility]) Vital Signs (Past 12 Hours) Vital Signs Temp Pulse Resp BP Pulse Ox 07/12/21 07:59 36.7 C 78 18 106/58 L 93 01/28/21 02:59 37.1 C 79 101/59 L 92 01/27/21 23:02 36.4 C L 82 106/62 93 Laboratory Results Abnormal lab results 01/27/21 01/27/21 01/28/21 Range/Units 17:38 17:38 00:16 WBC 17.08 H (4.8-10.8) K/uL RBC 2.65 L (4.2-5.4) M/uL Hgb 8.9 L (12.0-16.0) g/dL Hct 27.2 L (37-47) % MCV 102.6 H (80-100) fL RDW Std Deviation 74.5 H (36.4-46.3) fL RDW Coeff of Shun 19.5 H (11.5-14.5) % Neut # (Auto) 15.10 H (1.4-6.5) K/uL Lymph # (Auto) 1.14 L (1.2-3.4) K/uL [place] # (Auto) 0.77 H (0.11-0.59) K/uL Immature Gran # (Auto) 0.06 H (0.00-0.02) K/uL PT 16.3 H (9.0-12.0) Seconds INR 1.7 H (0.9-1.1) APTT 37.0 H (21.0-31.0) Seconds Sodium (136-145) mmol/L BUN (7-18) mg/dl Creatinine (0.6-1.2) mg/dl BUN/Creatinine Ratio (10-20) Phosphorus (2.5-4.9) mg/dl Total Bilirubin (0.2-1) mg/dl AST (15-37) U/L Albumin (3.4-5.0) gm/dl Albumin/Globulin Ratio (0.9-2) 01/28/21 01/28/21 01/28/21 Range/Units 00:16 07:32 07:32 WBC 16.85 H (4.8-10.8) K/uL RBC 2.43 L (4.2-5.4) M/uL Hgb 8.2 L 8.2 L (12.0-16.0) g/dL Hct 24.8 L 25.1 L (37-47) % MCV 103.3 H (80-100) fL RDW Std Deviation 74.2 H (36.4-46.3) fL RDW Coeff of Shun 19.7 H (11.5-14.5) % Neut # (Auto) (1.4-6.5) K/uL Lymph # (Auto) (1.2-3.4) K/uL [place] # (Auto) (0.11-0.59) K/uL Immature Gran # (Auto) (0.00-0.02) K/uL PT (9.0-12.0) Seconds INR (0.9-1.1) APTT (21.0-31.0) Seconds Sodium 135 L (136-145) mmol/L BUN 22 H (7-18) mg/dl Creatinine 0.54 L (0.6-1.2) mg/dl BUN/Creatinine Ratio 40.9 H (10-20) Phosphorus 2.0 L (2.5-4.9) mg/dl Total Bilirubin 5.0 H (0.2-1) mg/dl AST 115 H (15-37) U/L Albumin 2.5 L (3.4-5.0) gm/dl Albumin/Globulin Ratio 0.6 L (0.9-2) // Range/Units 07:32 WBC (4.8-10.8) K/uL RBC (4.2-5.4) M/uL Hgb (12.0-16.0) g/dL Hct (37-47) % MCV (80-100) fL RDW Std Deviation (36.4-46.3) fL RDW Coeff of Shun (11.5-14.5) % Neut # (Auto) (1.4-6.5) K/uL Lymph # (Auto) (1.2-3.4) K/uL [place] # (Auto) (0.11-0.59) K/uL Immature Gran # (Auto) (0.00-0.02) K/uL PT 17.5 H (9.0-12.0) Seconds INR 1.8 H (0.9-1.1) APTT 47.3 H* (21.0-31.0) Seconds Sodium (136-145) mmol/L BUN (7-18) mg/dl Creatinine (0.6-1.2) mg/dl BUN/Creatinine Ratio (10-20) Phosphorus (2.5-4.9) mg/dl Total Bilirubin (0.2-1) mg/dl AST (15-37) U/L Albumin (3.4-5.0) gm/dl Albumin/Globulin Ratio (0.9-2) PG Care Time/CCT Total # of Minutes Spent Total Time Spent with Patient: Total time spent is greater than 50% in coordination of care (as documented) at patient's floor/unit and/or counseling patient: Coding Level of Care Code 88092 Subseq Hosp Care Lvl 3 Diagnoses Alcoholic hepatitis K70.10 Alcoholic cirrhosis K70.30
[2021-01-28] MEDS: HEPARIN SODIUM/DEXTROSE 25,000 UNITS/500 ML BAG IV SCH (18:09)
[2021-01-28] MEDS: LACTULOSE SYRUP 10 GM/15 ML BTL 960 ML PO SCH (20:06)
[2021-01-28 20:09] LABS: Partial Thromboplastin Ratio 1.7; Partial Thromboplastin Time 43.6 Seconds (21.0-31.0)
[2021-01-29] MEDS: PANTOprazole 40 MG TAB PO SCH (05:19)
[2021-01-29 06:47] LABS: Basophils # (auto) 0.01 K/uL (0-0.2); Basophils % (auto) 0.1 %; Eosinophils # (auto) 0.01 K/uL (0-0.5); Eosinophils % (auto) 0.1 %; Hematocrit (blood only) 24.4 % (37-47); Hemoglobin 7.9 g/dL (12.0-16.0); Immature Granulocytes # (auto) 0.04 K/uL (0.00-0.02); Immature Granulocytes % (auto) 0.3 %; Lymphocytes # (auto) 2.64 K/uL (1.2-3.4); Lymphocytes % (auto) 21.8 %; Mean Corpuscular Hemoglobin 33.2 pg (25-34); Mean Corpuscular Hgb Conc 32.4 g/dL (32-36); Mean Corpuscular Volume 102.5 fL (80-100); Mean Platelet Volume 9.4 fL (7.4-10.4); Monocytes % (auto) 9.9 %; Neutrophils # (auto) 8.23 K/uL (1.4-6.5); Neutrophils % (auto) 67.8 %; Platelet Count 171 K/uL (130-400); RDW Coefficient of Variation 19.2 % (11.5-14.5); RDW Standard Deviation 72.2 fL (36.4-46.3); Red Blood Count 2.38 M/uL (4.2-5.4); White Blood Count 12.13 K/uL (4.8-10.8)
[2021-01-29 06:59] LABS: Partial Thromboplastin Ratio 1.1; Partial Thromboplastin Time 28.5 Seconds (21.0-31.0)
[2021-01-29 07:13] LABS: Target Cells 1+
[2021-01-29] MEDS: LIDOCAINE 5% 1 PATCH TD SCH (08:00)
[2021-01-29] MEDS: LACTULOSE SYRUP 10 GM/15 ML BTL 960 ML PO SCH ×2 (08:00→19:52)
[2021-01-29] MEDS: methylPREDNISolone 32 MG in SYRINGE 0 ML IV SCH (08:00)
[2021-01-29] MEDS: NICOTINE 14 MG/24 HR PATCH TD SCH (08:01)
[2021-01-29] MEDS: PREGABALIN 100 MG CAP PO SCH ×2 (08:01→19:52)
[2021-01-29] MEDS: hydrOXYzine HCl 25 MG TAB PO PRN (08:01)
[2021-01-29] MEDS: ZINC SULFATE 220 MG CAPSULE PO SCH (08:02)
[2021-01-29] MEDS: THIAMINE HCL 100 MG TAB PO SCH (08:02)
[2021-01-29] MEDS: rifAXIMin 550 MG TABLET PO SCH ×2 (08:02→19:52)
[2021-01-29] MEDS: VENLAFAXINE HCL XR 37.5 MG CAPXR PO SCH (08:02)
[2021-01-29] MEDS: SPIRONOLACTONE 25 MG TAB PO SCH ×2 (08:02→17:54)
--- NOTE | 2021-01-29 10:06 | Ultrasound Report ---
ULTRASOUND-GUIDED DIAGNOSTIC AND THERAPEUTIC PARACENTESIS: HISTORY: Ascites. Procedure: The procedure and its risks, benefits and alternatives were discussed with the patient and written informed consent was obtained. Preliminary ultrasound of the abdomen was performed to determ ine a safe needle entry site. The left lower quadrant was prepped and draped in the usual sterile fashion. 1% Lidocaine was used fo r local anesthesia. A paracentesis needle-sheath was inserted into the peritoneal space using ultraso und guidance. The needle was removed and the sheath was connected to tubing and a vacuum suction angel ce. A total of 3.6 liters of yellow ascites was aspirated. The sheath was removed and a sterile dress ing applied. The patient tolerated the procedure well and there were no immediate complications. IMPRESSION: Ultrasound-guided therapeutic paracentesis with aspiration of 3.6 liters of ascites. 1 L was sent to the laboratory at the request of the referring physician. ACT 112: Negative or not required by law. Electronically signed by: Adelso Del Valle M.D. 01/29/2021 10:04 AM
--- NOTE | 2021-01-29 10:09 | Communication Note ---
Date of Service: January 29, 2021 Patient is a 46 yo female with alcoholic hepatitis/cirrhosis. Patient is off the floor at the time of my rounds undergoing a therapeutic paracentesis for ab dominal ascites as reportedly she is not able to take diuretic therapy. Moving forward, will need to establish if patient has esophageal varices prior to anticoagulating for portal vein thrombosis. Currently, my office is in communication with the patient's primary GI ([facility]) to determine this. If for some reason she has not had an EGD, we can consider this while hospitalized. As for the remainder of her treatment plan: -Continue Methylprednisolone 32 mg daily, calculate Lille score on day 7 of steroids to see if effective. -Continue PPI daily. -Lactulose 15 mL BID due to severe diarrhea. Titrate to 3-4 soft/loose BMs daily. -Continue Rifaximin 550 mg BID. -Supportive care per primary team. -Will need outpatient follow-up appointment with [facility] Cordero as she is established with them for this issue. Will defer any further hepatology referral decisions to them. Thank you for allowing us to participate in the care of this patient. If you should have any further questions or concerns, do not hesitate to contact us at [phone] or [phone]. Agree with ACOSTA Long as above EGD from Late 2019 showed no evidence of esophageal varices Abd: Soft, NT, Distended, +Hepatomegaly Continue supportive care and current medications. As we do not know the chronicity of her PVT, it is reasonable to treat this with anticoagulation as she does not have esophageal varices. F/U with [facility] Cordero as outpatient for further recommendations
[2021-01-29] MEDS: traMADol HCL 50 MG TABLET PO PRN ×2 (10:31→15:46)
[2021-01-29] MEDS: ALBUMIN 25% 12.5 GM/50 ML VIAL IV SCH ×2 (10:41→12:01)
[2021-01-29 10:54] LABS: Albumin Peritoneal Fluid 0.6 g/dl
[2021-01-29 11:02] LABS: Appearance Peritoneal Fluid CLEAR; Basophils, Fluid 0 %; Color Peritoneal Fluid YELLOW; Eosinophils, Fluid 0 %; Lymphocytes, Fluid 57 %; Mono,Macrophage,Mesothelial 43 %; Neutrophils, Fluid 0 %; RBC Peritoneal Fluid (A) < 3000 /uL; WBC Peritoneal Fluid (A) 154 /ul (0-300)
[2021-01-29 11:06] LABS: Total Protein Peritoneal Fluid 1.1 g/dl
[2021-01-29] MEDS: ACETAMINOPHEN 500 MG TAB PO PRN (13:35)
[2021-01-29 17:10] LABS: Partial Thromboplastin Ratio 1.6; Partial Thromboplastin Time 42.4 Seconds (21.0-31.0)
[2021-01-29] MEDS: HEPARIN SODIUM/DEXTROSE 25,000 UNITS/500 ML BAG IV SCH ×3 (17:38→23:55)
[2021-01-29] MEDS ORDERED: oxyCODONE HCL IR 5 MG TAB (IMMEDIATE RELEASE) PO STA (18:07)
--- NOTE | 2021-01-29 18:13 | Hospitalist Progress Note ---
Date of Service January 29, 2021 Assessment & Plan (1) Alcoholic hepatitis: Janette DF was 38 on admission. - SBP ruled out with paracentesis x2; started methylprednisolone 40 mg IV daily per GI. (Only did diagnostic paracentesis as patient was not willing to do therapeutic.) - HCV testing - pending - no signs of withdrawal - liver labs -> Improving - GI consulted - Appreciate recs, continued steroids no comment on continued anticoagulation at discharge may change idea about outpt vs inpt egd, if we need to make a decision about doac abdomen is larger and more tender according to pt, paracentesis/albumin 01/29/21 (2) Portal vein thrombosis: u/s 01/26 IMPRESSION: 1. At least partially occlusive portal vein thrombus of unknown chronicity. 2. Cirrhotic liver disease with small volume of abdominal ascites. pt started on IV heparin after previous attending discussed with GI retirement consultant. will have on heparin gtt and if stable in am change to doac (3) Alcoholic cirrhosis: Evidence of cirrhosis on imaging and exam. MELD score gives 19.6% chance of mortality in 3 months. RUQ u/s on 01/26 showed evidence of cirrhosis, possible portal vein thrombosis, and ascites. - Continue home lactulose -> NH3 of 42 on outside labs. Mental status clear but refusing lactulose today - Continue spironolactone - Continue PPI PO daily (4) Depression: Expressed SI to the [facility] ED attending and to admitting provider at [facility], but denied it to psychiatry. - Cleared from suicide precautions. - Will get outpatient resources from psychiatric nurse liaison - Started venlafaxine ER 37.5 mg daily and Vistaril on 01/27. She reported success with duloxetine in the past, but stopped it when she relapsed with alcohol. Duloxetine is contraindicated in cirrhosis, but venlafaxine is ok at 1/2 usual dosing. Vistaril may help with anxiety as well. Also ordered with hepatic dosing. (5) Alcohol abuse: Has drank up to 1 bottle of vodka daily, though she endorses cutting back in the last weeks/months. - Monitor for withdrawal -> None noted so far. (6) Chronic back pain: Chronic back pain. - Tylenol PRN (<2g/day) - Lidocaine patches - Tramadol PRN (hepatically-adjusted) (7) Tobacco abuse: Smokes 1/2 ppd. - Nicotine patch ordered (8) DVT prophylaxis: SCDs - no on therapeutic heparin Admission and Anticipated Discharge Date Admission Date: January 26, 2021 Subjective Patient has refused lactulose x 2 doses. post paracentesis continues with abdominal tenderness ? Remains on IV steroids Lower extremity edema resolving. Pt looks improved but still with poor appearance Review of Systems Review of Systems: Mild distress and moderate fatigue no headache, no visual changes no speech or swallowing issues no chest pain, pressure or palpitations no shortness of breath, cough or wheezes Diffuse generalized abdominal pain worse with movement, dull and achy, no diarrhea has stopped her lactulose no dysuria, hematuria or frequency no focal joint pain improving with persistent lower extremity swelling no back pain, CVA tenderness or radicular pain no bruising, bleeding or rashes no focal signs of weakness or numbness or altered sensation no complaints of anxiety or depression.. Physical Exam Physical Exam: The patient appeared chronically ill and mildly jaundiced Vital signs as documented. Head exam is normocephalic atraumatic Neck is without JVD, thyromegaly, or carotid bruits. Lungs are clear to auscultation, no focal loss of breath sounds Cardiac exam, Rhythm is regular.. No murmurs, rubs or gallops. Abdominal exam reveals normal bowel sounds, also abdominal distention soft but without an acute abdomen Extremities are trace edematous and both pedal pulses are present Neurologic exam is alert and oriented, no asterixis, no focal loss of strength or sensation Skin is without bruises or rashes Psychologically is without concerns for anxiety or depression Results & Data Results & Data ([facility]) Vital Signs (Past 12 Hours) Vital Signs Temp Pulse Resp BP Pulse Ox 01/29/21 15:48 97.7 F 68 18 103/57 L 92 01/29/21 10:44 98.4 F 73 16 104/61 93 01/29/21 07:44 97.5 F L 75 18 119/63 94 PG Care Time/CCT Total # of Minutes Spent Total Time Spent with Patient: Total time spent is greater than 50% in coordinat ion of care (as documented) at patient's floor/unit and/or counseling patient: Coding Level of Care Code 07445 Subseq Hosp Care Lvl 3 Diagnoses Alcoholic hepatitis K70.10 Portal vein thrombosis I81 Alcoholic cirrhosis K70.30 Depression F32.9 Alcohol abuse F10.10 Chronic back pain M54.9; G89.29 Tobacco abuse Z72.0 DVT prophylaxis Z29.9
[2021-01-29 23:50] LABS: Partial Thromboplastin Time 52.8 Seconds (21.0-31.0)
[2021-01-30] MEDS: PANTOprazole 40 MG TAB PO SCH (05:12)
[2021-01-30] MEDS: traMADol HCL 50 MG TABLET PO PRN ×3 (06:31→21:53)
[2021-01-30 08:06] LABS: Partial Thromboplastin Ratio 1.9
[2021-01-30 08:11] LABS: Partial Thromboplastin Time 50.8 Seconds (21.0-31.0)
[2021-01-30] MEDS: VENLAFAXINE HCL XR 37.5 MG CAPXR PO SCH (10:21)
[2021-01-30] MEDS: SPIRONOLACTONE 25 MG TAB PO SCH ×2 (10:21→17:06)
[2021-01-30] MEDS: rifAXIMin 550 MG TABLET PO SCH ×2 (10:21→20:14)
[2021-01-30] MEDS: hydrOXYzine HCl 25 MG TAB PO PRN (10:21)
[2021-01-30] MEDS: THIAMINE HCL 100 MG TAB PO SCH (10:21)
[2021-01-30] MEDS: NICOTINE 14 MG/24 HR PATCH TD SCH (10:22)
[2021-01-30] MEDS: LACTULOSE SYRUP 10 GM/15 ML BTL 960 ML PO SCH ×2 (10:22→20:13)
[2021-01-30] MEDS: LIDOCAINE 5% 1 PATCH TD SCH (10:22)
[2021-01-30] MEDS: PREGABALIN 100 MG CAP PO SCH ×2 (10:22→20:13)
[2021-01-30] MEDS: methylPREDNISolone 32 MG in SYRINGE 0 ML IV SCH (10:22)
[2021-01-30] MEDS: ZINC SULFATE 220 MG CAPSULE PO SCH (10:23)
[2021-01-30 11:38] LABS: Hemoglobin 8.2 g/dL (12.0-16.0); Mean Corpuscular Hemoglobin 33.5 pg (25-34); Mean Corpuscular Hgb Conc 32.8 g/dL (32-36); Mean Platelet Volume 9.5 fL (7.4-10.4); Platelet Count 180 K/uL (130-400); RDW Standard Deviation 70.7 fL (36.4-46.3); Red Blood Count 2.45 M/uL (4.2-5.4); White Blood Count 13.14 K/uL (4.8-10.8)
[2021-01-30 11:48] LABS: Albumin Level 2.6 gm/dl (3.4-5.0); BUN Creatinine Ratio 43.7 (10-20); Calcium 8.3 mg/dl (8.5-10.1); Creatinine Clr Calc Pharmacy 183.7 ml/min; Est GFR (African American) 138.3 ml/min; Est GFR (Non-African American) 119.4 ml/min; Potassium 3.9 mmol/L (3.5-5.1)
[2021-01-30 11:59] LABS: Albumin Globulin Ratio 0.7 (0.9-2); Globulin 3.5 gm/dl (2.5-4.0); Total Protein 6.1 gm/dl (6.4-8.2)
[2021-01-30] MEDS ORDERED: oxyCODONE HCL IR 5 MG TAB (IMMEDIATE RELEASE) PO STA (16:47)
--- NOTE | 2021-01-30 16:51 | Hospitalist Progress Note ---
Date of Service January 30, 2021 Assessment & Plan (1) Alcoholic hepatitis: (2) Portal vein thrombosis: (3) Alcoholic cirrhosis: (4) Depression: (5) Alcohol abuse: (6) Chronic back pain: (7) Tobacco abuse: (8) DVT prophylaxis: Plan: (1) Alcoholic hepatitis: Janette DF was 38 on admission. - SBP ruled out with paracentesis x2; started methylprednisolone 40 mg IV daily per GI. (Only did diagnostic paracentesis as patient was not willing to do therapeutic.) - HCV testing - pending - no signs of withdrawal - liver labs -> Improving - GI consulted - Appreciate recs, continued steroids no comment on continued anticoagulation at discharge may change idea about outpt vs inpt egd, if we need to make a decision about doac abdomen is larger and more tender according to pt, paracentesis/albumin 01/29/21 (2) Portal vein thrombosis: u/s 01/26 IMPRESSION: 1. At least partially occlusive portal vein thrombus of unknown chronicity. 2. Cirrhotic liver disease with small volume of abdominal ascites. pt started on IV heparin after previous attending discussed with GI account consultant. will have on heparin gtt and if stable in am change to doac (3) Alcoholic cirrhosis: Evidence of cirrhosis on imaging and exam. MELD score gives 19.6% chance of mortality in 3 months. RUQ u/s on 01/26 showed evidence of cirrhosis, possible portal vein thrombosis, and ascites. - Continue home lactulose -> NH3 of 42 on outside labs. Mental status clear but refusing lactulose today - Continue spironolactone - Continue PPI PO daily (4) Depression: Expressed SI to the [facility] ED attending and to admitting provider at [facility], but denied it to psychiatry. - Cleared from suicide precautions. - Will get outpatient resources from psychiatric nurse liaison - Started venlafaxine ER 37.5 mg daily and Vistaril on 01/27. She reported success with duloxetine in the past, but stopped it when she relapsed with alcohol. Duloxetine is contraindicated in cirrhosis, but venlafaxine is ok at 1/2 usual dosing. Vistaril may help with anxiety as well. Also ordered with hepatic dosing. (5) Alcohol abuse: Has drank up to 1 bottle of vodka daily, though she endorses cutting back in the last weeks/months. - Monitor for withdrawal -> None noted so far. (6) Chronic back pain: Chronic back pain. - Tylenol PRN (<2g/day) - Lidocaine patches - Tramadol PRN (hepatically-adjusted) (7) Tobacco abuse: Smokes 1/2 ppd. - Nicotine patch ordered (8) DVT prophylaxis: SCDs - on therapeutic heparin Admission and Anticipated Discharge Date Admission Date: January 26, 2021 Review of Systems Review of Systems: Mild distress and moderate fatigue no headache, no visual changes no speech or swallowing issues no chest pain, pressure or palpitations no shortness of breath, cough or wheezes Diffuse generalized abdominal pain worse with movement, dull and achy, no diarrhea has stopped her lactulose no dysuria, hematuria or frequency no focal joint pain improving with persistent lower extremity swelling no back pain, CVA tenderness or radicular pain no bruising, bleeding or rashes no focal signs of weakness or numbness or altered sensation no complaints of anxiety or depression.. Physical Exam Physical Exam: The patient appeared chronically ill and mildly jaundiced Vital signs as documented. Head exam is normocephalic atraumatic Neck is without JVD, thyromegaly, or carotid bruits. Lungs are clear to auscultation, no focal loss of breath sounds Cardiac exam, Rhythm is regular.. No murmurs, rubs or gallops. Abdominal exam reveals normal bowel sounds, also abdominal distention soft but without an acute abdomen Extremities are trace edematous and both pedal pulses are present Neurologic exam is alert and oriented, no asterixis, no focal loss of strength or sensation Skin is without bruises or rashes Psychologically is without concerns for anxiety or depression Results & Data Results & Data ([facility]) Vital Signs (Past 12 Hours) Vital Signs Temp Pulse Resp BP BP Pulse Ox 01/30/21 15:15 98.4 F 70 19 104/61 96 01/30/21 07:41 98.2 F 75 18 104/63 95 PG Care Time/CCT Total # of Minutes Spent Total Time Spent with Patient: Total time spent is greater than 50% in coordination of care (as documented) at patient's floor/unit and/or counseling patient: Coding Level of Care Code 00465 Subseq Hosp Care Lvl 2 Diagnoses Alcoholic hepatitis K70.10 Portal vein thrombosis I81 Alcoholic cirrhosis K70.30 Depression F32.9 Alcohol abuse F10.10 Chronic back pain M54.9; G89.29 Tobacco abuse Z72.0 DVT prophylaxis Z29.9
--- NOTE | 2021-01-30 16:53 | Hospitalist Progress Note ---
Date of Service January 30, 2021 Assessment & Plan (1) Alcoholic hepatitis: (2) Portal vein thrombosis: (3) Alcoholic cirrhosis: (4) Depression: (5) Alcohol abuse: (6) Chronic back pain: (7) Tobacco abuse: (8) DVT prophylaxis: Admission and Anticipated Discharge Date Admission Date: January 26, 2021 Results & Data Results & Data ([facility]) Vital Signs (Past 12 Hours) Vital Signs Temp Pulse Resp BP BP Pulse Ox 01/30/21 15:15 98.4 F 70 19 104/61 96 01/30/21 07:41 98.2 F 75 18 104/63 95 PG Care Time/CCT Total # of Minutes Spent Total Time Spent with Patient: Total time spent is greater than 50% in coordination of care (as documented) at patient's floor/unit and/or counseling patient: Coding Diagnoses Alcoholic hepatitis K70.10 Portal vein thrombosis I81 Alcoholic cirrhosis K70.30 Depression F32.9 Alcohol abuse F10.10 Chronic back pain M54.9; G89.29 Tobacco abuse Z72.0 DVT prophylaxis Z29.9
[2021-01-30] MEDS: HEPARIN SODIUM/DEXTROSE 25,000 UNITS/500 ML BAG IV SCH (21:56)
[2021-01-31] MEDS: ACETAMINOPHEN 500 MG TAB PO PRN (01:20)
[2021-01-31] MEDS: PANTOprazole 40 MG TAB PO SCH (05:09)
[2021-01-31] MEDS: traMADol HCL 50 MG TABLET PO PRN (07:09)
[2021-01-31] MEDS: methylPREDNISolone 32 MG in SYRINGE 0 ML IV SCH (07:42)
[2021-01-31] MEDS: rifAXIMin 550 MG TABLET PO SCH (07:42)
[2021-01-31] MEDS: PREGABALIN 100 MG CAP PO SCH (07:42)
[2021-01-31] MEDS: VENLAFAXINE HCL XR 37.5 MG CAPXR PO SCH (07:43)
[2021-01-31] MEDS: THIAMINE HCL 100 MG TAB PO SCH (07:43)
[2021-01-31] MEDS: ZINC SULFATE 220 MG CAPSULE PO SCH (07:43)
[2021-01-31] MEDS: SPIRONOLACTONE 25 MG TAB PO SCH (07:43)
[2021-01-31] MEDS: NICOTINE 14 MG/24 HR PATCH TD SCH (07:44)
[2021-01-31] MEDS: LIDOCAINE 5% 1 PATCH TD SCH (07:44)
[2021-01-31 08:02] LABS: Basophils # (auto) 0.01 K/uL (0-0.2); Basophils % (auto) 0.1 %; Eosinophils # (auto) 0.03 K/uL (0-0.5); Eosinophils % (auto) 0.2 %; Hematocrit (blood only) 26.3 % (37-47); Hemoglobin 8.5 g/dL (12.0-16.0); Immature Granulocytes # (auto) 0.05 K/uL (0.00-0.02); Immature Granulocytes % (auto) 0.4 %; Lymphocytes # (auto) 2.64 K/uL (1.2-3.4); Lymphocytes % (auto) 19.1 %; Mean Corpuscular Hemoglobin 33.5 pg (25-34); Mean Corpuscular Hgb Conc 32.3 g/dL (32-36); Mean Corpuscular Volume 103.5 fL (80-100); Mean Platelet Volume 9.3 fL (7.4-10.4); Monocytes # (auto) 1.48 K/uL (0.11-0.59); Monocytes % (auto) 10.7 %; Neutrophils # (auto) 9.63 K/uL (1.4-6.5); Neutrophils % (auto) 69.5 %; Platelet Count 174 K/uL (130-400); RDW Standard Deviation 71.5 fL (36.4-46.3); Red Blood Count 2.54 M/uL (4.2-5.4); White Blood Count 13.84 K/uL (4.8-10.8)
[2021-01-31 08:39] LABS: Partial Thromboplastin Time 53.4 Seconds (21.0-31.0)
[2021-01-31] MEDS ORDERED: APIXABAN 2.5 MG TAB PO ONE (10:18)
[2021-01-31] MEDS: LACTULOSE SYRUP 10 GM/15 ML BTL 960 ML PO SCH (10:33)
--- NOTE | 2021-01-31 18:25 | Discharge Summary ---
Date of Service January 31, 2021 Admission HPI Per Admitting Provider 46yo F w/ hx of alcoholic cirrhosis. She usually follows with [facility], but cannot tell me any specifics of her recent liver care. She tells me she went to [facility] ED for back and abdominal pain as well as suicidal feelings. She denies she had a plan, but says that if God intends for her to be in such pain, she needs a "back-up plan." She notes that she has chronic nausea and sporadic emesis. She reports her last emesis to be on . She reports the emesis as her prior ingested food and sometimes some bilious vomit, but denies coffee ground emesis or any hematemesis. She note some mild bright red blood on her stool, but mostly it is on the toilet paper when she wipes. She notes that when she drank more heavily, she would drink an entire bottle of vodka per day or "until [she] passed out." Presently, she reports her last drink as on and that it was only 1 1/2 shots of vodka. She endorses significant back and abdominal pain, but otherwise none. She denies any chest pain, shortness of breath, present nausea or vomiting, denies fevers/chills. She is somewhat confused and keeps thinking she is at [facility] where she is usually sent for hospitalization. Principal Diagnosis alcoholic hepatitis ascites s/p paracentesis portal vein thrombosis hepatpic encephalopathy Discharge Exam The patient appeared chronically ill is persistently jaundiced Vital signs as documented. Lungs are clear to auscultation and appear unlabored Cardiac exam, Rhythm is regular.. No murmurs, rubs or gallops. Abdominal exam reveals normal bowel sounds, soft feels slightly distended mildly tender no rebound no guarding Extremities are nonedematous and both pedal pulses are normal. Neurologic exam is alert and oriented, no focal loss of strength or sensation Skin is with jaundiced Psychologically is without concerns for anxiety or depression. Discharge Data Allergies Allergy/AdvReac Type Severity Reaction Status Date / Time No Known Allergies Allergy Verified 01/26/21 07:46 Consultations 01/26/21 08:06 Consult Psychiatry Routine 01/26/21 08:09 Consult Gastroenterology Routine 01/27/21 16:32 Consult Health Information Management Stat Ordered Studies 01/26/21 08:11 US abdomen limited Urgent 01/27/21 12:15 US duplex portal hepatic veins Routine 01/29/21 09:00 US paracentesis abd w/image Routine Hospital Course (1) Alcoholic hepatitis: Janette DF was 38 on admission. - SBP ruled out with paracentesis x2; started methylprednisolone Lady score has improved we will continue 28 days of treatment follow-up with [facility] to determine final continuation discontinuation. - HCV testing -negative - no signs of withdrawal - liver labs -> Improving - GI consulted - Appreciate recs, continued steroids patient outpatient records did not show esophageal varices subsequently will be discharged on DOAC, Eliquis, to treat portal vein thrombosis. (2) Portal vein thrombosis: u/s 01/26 IMPRESSION: 1. At least partially occlusive portal vein thrombus of unknown chronicity. 2. Cirrhotic liver disease with small volume of abdominal ascites. Transition Eliquis with GI outpatient follow-up (3) Alcoholic cirrhosis: Evidence of cirrhosis on imaging and exam. MELD score gives 19.6% chance of mortality in 3 months. RUQ u/s on 01/26 showed evidence of cirrhosis, possible portal vein thrombosis, and ascites. - Continue home lactulose -> NH3 of 42 on outside labs. Mental status clear but refusing lactulose today - Continue spironolactone Reinforced needs to have 2 bowel movements a day continuing lactulose and rifaximin (4) Depression: Expressed SI to the [facility] ED attending and to admitting provider at [facility], but denied it to psychiatry. - Cleared from suicide precautions. - Will get outpatient resources from psychiatric nurse liaison - Started venlafaxine ER 37.5 mg daily and Vistaril on 01/27. She reported success with duloxetine in the past, but stopped it when she relapsed with alcohol. Duloxetine is contraindicated in cirrhosis, but venlafaxine is ok at 1/2 usual dosing. Vistaril may help with anxiety as well. Also ordered with hepatic dosing. (5) Alcohol abuse: Has drank up to 1 bottle of vodka daily, though she endorses cutting back in the last weeks/months. No signs of alcohol withdrawal. (6) Chronic back pain: Chronic back pain. - Tylenol PRN (<2g/day) - Lidocaine patches - Tramadol PRN (hepatically-adjusted) (7) Tobacco abuse: Smokes 1/2 ppd. - Nicotine patch ordered Tobacco cessation counseling offered Total Time Total Time Spent Total Time Spent (In Minutes): It required greater than 30 minutes to prepare this patient for discharge Discharge Plan Discharge Items Patient Disposition: Home - Home Health Services Reason For Visit: ALCOHOLISM, HEPITITIS Discharge Diagnosis: alcoholic hepatitis with encephalopathy and ascites portal vein thrombosis Activity: Resume your previous activity Non-emergency contact: Primary Care Provider and Flux Tube Attendant Call non-emergency contact if: you have any medication questions Follow-up/Referrals: [facility] [Outside] - 02/08/21 2:00 pm (appointment via telehealth) Emeterio Herndon PA-C [Primary Care Provider] - Huan Rodriguez MD [Outside Practitioners] - 02/06/21 10:45 am (GI hospital follow up) Diet: Low Sodium (2gm) Addtl Attending Provider Instructions: please be sure to see your Flux Tube Attendant in one week from discharge to track and keep aware of your steroid use take your lactulose to assure you have 2 bowel movements a day take you anticoagulation twice a day Medication Instructions: Your condition is typically treated with an anticoagulant. Anticoagulants will thin your blood to help prevent new clots. * You should take her medication exactly as directed. * Never skip a dose. * Never take a double dose. If you miss a dose, take it as soon as you remember. Call your Primary Care doctor if you experience any of the following: * Swelling or Pain in your leg * Sudden, continuous pain deep in a muscle * Pain that worsens when you are active or when you stand still for a long time * Chest Pain * Sudden Shortness of Breath * Rapid or pounding heart beat * Fainting * Dizziness * Cough with blood or bloody sputum * Sweating more than normal * Bruises * Heavy or uncontrolled bleeding * Blood in your urine, stool or vomit * Black or tarry stools Caring for Your Self at Home: * Avoid sitting, standing or lying down for long periods without moving your legs and feet * When traveling by car, stop to get out and move around at least once every 3 hours * On long airplane, train or bus rides, get up and move around when possible * If you can't get up, wiggle your toes and tighten your calves to keep your blood moving Follow Up: It is important for you to keep your follow up appointments with your medical provider. Pending Studies at Discharge: Yes Stand-Alone Forms: My [facility], Smoking Cessation Medications and DC Order Prescriptions: New venlafaxine 37.5 mg Capsule,Extended Release 24hr 37.5 mg PO QAM Qty: 30 RF: 0 lidocaine 5 % Adhesive Patch,Medicated 1 patch transdermal QAM Qty: 10 RF: 0 Xifaxan 550 mg Tablet 550 mg PO BID Qty: 60 RF: 0 methylprednisolone 32 mg tablet 32 mg PO DAILY Qty: 23 RF: 0 Eliquis 5 mg tablet 5 mg PO UD Qty: 90 RF: 0 Continued spironolactone [Aldactone] 50 mg tablet 50 mg PO BID RF: 0 magnesium oxide 400 mg (241.3 mg magnesium) tablet 400 mg PO BID RF: 0 pantoprazole 40 mg tablet,delayed release (DR/EC) 40 mg PO DAILYBB RF: 0 omeprazole 20 mg capsule,delayed release(DR/EC) 20 mg PO DAILY RF: 0 cholecalciferol (vitamin D3) [Vitamin D3] 50 mcg (2,000 unit) tablet 2,000 mcg PO DAILY RF: 0 thiamine HCl (vitamin B1) 100 mg tablet 100 mg PO DAILY RF: 0 cyanocobalamin (vitamin B-12) 1,000 mcg tablet 1,000 mcg PO DAILY RF: 0 pregabalin 100 mg Capsule 100 mg PO BID RF: 0 ropinirole [Requip] 0.25 mg Tablet 0.75 mg PO HS PRN (Reason: Restless Leg(S)) RF: 0 lactulose 10 gram/15 mL solution PO RF: 0 Discontinued zolpidem [Ambien] 10 mg tablet 10 mg PO HS PRN (Reason: Insomnia) RF: 0 Discharge Orders: Discharge Order (Routine); Ordered 01/31/21 Ordered By: Silas Bustos Admission Data Admit Date/Time: 01/26/21 06:43 Attending Provider: Silas Bustos Admit Provider: Tika Ordoñez Primary Care Provider: Emeterio Herndon Other Providers: Claudette Hurst ; Dr Jeff ; Evelyn Cervantes ; Edilberto Grace ; Jeffrey Dee ; [facility] Other Interventions: Discharge Summary Assessment (RN) Last Done: 01/31/21 10:28 Coding Level of Care Code D/C DAY MANAGEMENT >30 MINS Diagnoses Alcoholic hepatitis K70.10 Portal vein thrombosis I81 Alcoholic cirrhosis K70.30 Depression F32.9 Alcohol abuse F10.10 Chronic back pain M54.9; G89.29 Tobacco abuse Z72.0
== END 2021-01-31 16:22 | disposition home health service (06) | DRG 420 ==
LOC: 2E 06:43 → SUATTDRO 06:43 → 2W 17:06